=== PATIENT | female | born 1930 | race Caucasian/White ===

== ENCOUNTER 2019-06-26 08:58 | Inpatient (IN) | payer MEDICARE ==
[2019-06-26] VITALS (7 sets, daily range): BP systolic 136–182; BP diastolic 54–82
[~2019-06-26] VITALS: Ht 152.4 cm; Wt 67.1 kg
[~2019-06-26 08:58] MED LIST: CIPROFLOXACIN500 MG PO
[2019-06-26 09:34] LABS: BASO % 0.5 % (0.0-1.0); EOS # 0.1 10*3/uL (0.0-0.4); EOS % 1.9 % (1.0-4.0); HEMATOCRIT 42.9 % (37.0-47.0); HEMOGLOBIN 13.6 g/dl (12.0-16.0); LYMPH # 1.5 10*3/uL (1.3-4.4); LYMPH % 24.6 % (27.0-41.0); MEAN CELL VOLUME 95.3 fl (81.0-99.0); MEAN CORPUSCULAR HGB 30.2 pg (27.0-31.0); MEAN CORPUSCULAR HGB CONC 31.7 g/dl (33.0-37.0); MEAN PLATELET VOLUME 10.2 fl (9.6-12.3); MONO # 0.5 10*3/uL (0.1-1.0); MONO % 7.2 % (3.0-9.0); NEUT # 4.1 10*3/uL (2.3-7.9); NEUT % 65.3 % (47.0-73.0); PLATELET COUNT AUTOMATED 185 10*3/uL (130-400); WHITE BLOOD COUNT 6.3 10*3/uL (4.8-10.8)
[2019-06-26 09:55] LABS: ALBUMIN 3.2 gm/dl (3.1-4.5); ALKALINE PHOSPHATASE 73 U/L (45-117); BUN 6 mg/dl (7-24); CHLORIDE 110 mmol/L (98-107); CREATININE 0.86 mg/dL (0.55-1.02); SGOT/AST 16 IU/L (3-35); SGPT/ALT 15 U/L (12-78); SODIUM 143 mmol/L (136-145); TOTAL PROTEIN 6.4 gm/dL (6.4-8.2)
[2019-06-26 10:10] LABS: TROPONIN I < 0.015 ng/ml (<0.045)
[2019-06-26 10:12] LABS: BILIRUBIN NEGATIVE (NEGATIVE); BLOOD TRACE-INTACT (NEGATIVE); CLARITY CLEAR (CLEAR); COLOR YELLOW (YELLOW); GLUCOSE NEGATIVE (NEGATIVE); KETONE NEGATIVE (NEGATIVE); LEUKO ESTERASE 2+ (NEGATIVE); NITRITE NEGATIVE (NEGATIVE); UROBILINOGEN 0.2 E.U./dl (0.2-1.0)
[2019-06-26 10:35] LABS: BACTERIA 1+
--- NOTE | 2019-06-26 14:45 | NUR ---
Time: 1444 A 89 year old F admitted to under services of SRINIVAS ELIZABETH DO Pt. arrived via wheel chair from ER. Chief complaint: ALTERED MENTAL STATUS. JOSÉ MERCHANT
--- NOTE | 2019-06-26 15:09 | NUR ---
SPOKE WITH SONNY AT [facility], AWARE OF DR SELWYN APARICIO.
[2019-06-27] VITALS: BP 117/48
[2019-06-27 06:45] LABS: BASO % 0.3 % (0.0-1.0); EOS # 0.1 10*3/uL (0.0-0.4); EOS % 2.1 % (1.0-4.0); HEMATOCRIT 38.9 % (37.0-47.0); HEMOGLOBIN 12.5 g/dl (12.0-16.0); LYMPH # 1.4 10*3/uL (1.3-4.4); LYMPH % 22.1 % (27.0-41.0); MEAN CELL VOLUME 94.9 fl (81.0-99.0); MEAN CORPUSCULAR HGB 30.5 pg (27.0-31.0); MEAN CORPUSCULAR HGB CONC 32.1 g/dl (33.0-37.0); MEAN PLATELET VOLUME 10.9 fl (9.6-12.3); MONO # 0.5 10*3/uL (0.1-1.0); MONO % 7.1 % (3.0-9.0); NEUT # 4.3 10*3/uL (2.3-7.9); NEUT % 67.8 % (47.0-73.0); PLATELET COUNT AUTOMATED 188 10*3/uL (130-400); RED CELL DISTRI WIDTH 12.9 % (0-14.5); WHITE BLOOD COUNT 6.3 10*3/uL (4.8-10.8)
[2019-06-27 07:10] LABS: BUN 12 mg/dl (7-24); CHLORIDE 107 mmol/L (98-107); CHOLESTEROL 190 mg/dL (<200); FREE T4 0.82 ng/dl (0.76-1.46); HDL CHOLESTEROL 56 mg/dl (40-60); LDL CHOLESTEROL 115 mg/dL (9-159); PHOSPHOROUS 3.2 mg/dL (2.5-4.9); SODIUM 140 mmol/L (136-145); TRIGLYCERIDES 95 mg/dl (<150); VLDL CHOLESTEROL 19 mg/dL (6-40)
[2019-06-27 08:00] VITALS: BP 148/75
[2019-06-27 08:09] LABS: VITAMIN D, 25-HYDROXY 18.4 ng/mL (30-100)
--- NOTE | 2019-06-27 09:00 | NUR ---
case management visits with patient, son present, son stated patient lives at home alone, but he, his and daughter take turns throughout the day to stay with patient, patient is pleasanlty confused at this time, son stated his mom has gotten progressively worse, more confused over that last few weeks, discussed with him a discharge plan, he stated he would like his mom referred to [facility] for short term penitentiary and will talk with the family and decide for longterm care for patient, son stated he has paperwork at home but is unsure if it is a poa for healthcare or financial, he will bring the paperwork in to nursing staff. network planner will refer patient to [facility], case management will follow
--- NOTE | 2019-06-27 10:03 | NUR ---
Patient/family requesting referral to [facility] for skilled stay. Contacted [facility] and faxed referral. Since patient resides in [place] and has a [place] [employer] insurance, her referral was also faxed to [facility] to check benefits as patient may be required to stay in the state of which she resides. will follow.
--- NOTE | 2019-06-27 10:10 | NUR ---
Occupational Therapy evaluation completed this date on 4 with full eval to follow. Precautions include fall risk; bed/chair alarm,impaired cognition;poor memory,orientation,insight,judgement, moderate complexity level 73905 via chart reveiew, testing and evaluation. Recomemnd OT per POC and SNF to enable max ability to function. Thank you. Patient left in bed w/ bed alarm intact. Nurse given infor regarding patient's request for lunch. Natalee Harden OTR/l
[2019-06-27 12:00] VITALS: BP 151/66
--- NOTE | 2019-06-27 12:13 | NUR ---
DR HOOK IN TO SPEAK WITH PT.
--- NOTE | 2019-06-27 14:04 | NUR ---
PHYSICAL THERAPY Physical therapy evaluation completed, 4E. Full details/evaluation to follow. Moderate complexity determined after evaluation/chart review, [address]. PT to work on strength, gait, safety, transfers and balance. Recommending SNF at discharge due to severe Dementia. Thank you Megha Frazier, PT, DPT
[2019-06-27 16:00] VITALS: BP 137/83
--- NOTE | 2019-06-27 17:16 | NUR ---
PT KEEP TRYING TO STAND AND WALK AROUND ROOM/HALLS. ELOPEMENT RISK. WHEN BODY ALARM SOUNDS SHE GETS VERY UPSET. DR DOMINGUEZ NOTIFIED.
[2019-06-27 20:00] VITALS: BP 169/56
[2019-06-28] VITALS: BP 142/57
[2019-06-28 06:42] LABS: BASO % 0.3 % (0.0-1.0); BUN 9 mg/dl (7-24); CHLORIDE 106 mmol/L (98-107); CREATININE 0.81 mg/dL (0.55-1.02); EOS # 0.1 10*3/uL (0.0-0.4); EOS % 1.6 % (1.0-4.0); HEMATOCRIT 39.1 % (37.0-47.0); HEMOGLOBIN 12.6 g/dl (12.0-16.0); LYMPH # 1.1 10*3/uL (1.3-4.4); LYMPH % 18.4 % (27.0-41.0); MEAN CELL VOLUME 94.9 fl (81.0-99.0); MEAN CORPUSCULAR HGB 30.6 pg (27.0-31.0); MEAN CORPUSCULAR HGB CONC 32.2 g/dl (33.0-37.0); MEAN PLATELET VOLUME 10.8 fl (9.6-12.3); MONO # 0.5 10*3/uL (0.1-1.0); MONO % 7.6 % (3.0-9.0); NEUT # 4.4 10*3/uL (2.3-7.9); NEUT % 71.5 % (47.0-73.0); PLATELET COUNT AUTOMATED 175 10*3/uL (130-400); POTASSIUM 3.9 mmol/L (3.5-5.1); RED BLOOD COUNT 4.12 10*6/uL (4.10-5.10); RED CELL DISTRI WIDTH 12.9 % (0-14.5); SODIUM 140 mmol/L (136-145); WHITE BLOOD COUNT 6.2 10*3/uL (4.8-10.8)
--- NOTE | 2019-06-28 07:24 | NUR ---
Notified patient does not have [employer] Medicare, she has traditional medicare; however [facility] still feels patient should stay in the state of [place] and apply for [place] medicaid; she would be a payment issue for their facility so they are unable to meet her needs at this time. Patient referred to [facility] for review. Waiting on review/acceptance.
--- NOTE | 2019-06-28 07:40 | NUR ---
[facility] stating patient may be too confused for their facilities at this time, they are also concerned about possibility of patient becoming usp, they do not have any usp beds available at this time.
[2019-06-28 08:00] VITALS: BP 164/76
--- NOTE | 2019-06-28 08:25 | NUR ---
PHYSICAL THERAPY Patient seen this am 1:1 for therapy visit and was sitting up in bedside Teresita chair following breakfast upon therapist arrival. Patient identified by name / and was joined by patient attendant who was 1:1 Supervision secondary to severe Dementia / increased risk of falling. Patient was pleasant this morning transfering sit to stand MIN A, requiring v/c to collect herself due to impulsive behaviour. Patient ambulates REGISTRAR ASSISTANT/CGA, 40'x 2, demonstrating steady wayne, however very unsteady during all turns and during backward walk 5'x 2. Patient returned to Teresita chair with lap tray and body alarm under patient attendant 1:1 Supervision as her Son Ollie arrived to visit. Patient tolerated all treatment with no new c/o's and will continue per POC as tolerated, total treatment time 17 minutes. Aryan Leo, DE IONIZER OPERATOR
--- NOTE | 2019-06-28 08:40 | NUR ---
OT NOTE Pt was seen this A.M. 1:1 for 20 minute OT session. Upon arrival pt was sitting upright in the rg chair. Pt identified by name and and had no complaints at this time. Pt completed sit to stand transfer from chair level with Shelby followed by functional mobility into the bathroom with Shelby ASKEW. There she transferred on/off standard commode with Shelby due to low surface and max verbal prompts provided due to thinking the garbage can was the commode. Clothing management completed with CGA and toilet hygiene completed with Shelby for assist with sequencing. Throughout task pt thought that the depends in the trash can were the ones she was to be wearing, attempting to get them out of the trash required max verbal and tactile prompts to redirect. Pt then stood sink side while washing her hands and face with CGA for safety. Pt did have one LOB while making a tight turn in the bathroom that required Shelby to correct. Pt was left sitting upright in the rg chair with lap tray in place, body alarm activated for safety, and 1:1 in the room. Continue with rec D/C plan to SNF. SNOW Hinton/Pedro
--- NOTE | 2019-06-28 09:00 | NUR ---
conference planner is working with patient's son regarding discharge arrangements
[2019-06-28 12:00] VITALS: BP 124/51
--- NOTE | 2019-06-28 12:17 | NUR ---
Contacted [facility] in [facility]. Discussed this case with them and the fact that son would like senior procurement specialist care and needs assistance with applying for medicaid. Facility was very responsive and asked to send referral. [facility] is reviewing. son was notified.
--- NOTE | 2019-06-28 15:16 | NUR ---
Spoke with patient [id number] Serenity. Discussed the plan of discharge to [facility] for residential care. Explained the [place]icaid. She understood and is agreeable to referral to [facility].
--- NOTE | 2019-06-28 15:45 | NUR ---
Pt sitting up in chair with 1:1 sitter. Pt is tearful, states she didn't want to be bad. KAT Dueñas states that pt attempted to kick her when doing routine vitals recently. Reassured pt. Lungs dimished and clear throughout. Denies sob. No cough noted. No edema noted. Denies pain. Murmur noted. Will continue to monitor.
[2019-06-28 16:00] VITALS: BP 129/81; BP 130/80
[2019-06-28 20:00] VITALS: BP 132/66
[2019-06-29] VITALS: BP 92/52
--- NOTE | 2019-06-29 00:05 | NUR ---
patient resting in rg chair in view of 1:1 sitter, patient is sleeping, respirations easy and regular on room air. no overt distress.
[2019-06-29 06:33] LABS: BASO % 0.5 % (0.0-1.0); EOS # 0.1 10*3/uL (0.0-0.4); EOS % 1.4 % (1.0-4.0); HEMATOCRIT 38.2 % (37.0-47.0); HEMOGLOBIN 12.3 g/dl (12.0-16.0); LYMPH # 1.2 10*3/uL (1.3-4.4); LYMPH % 18.5 % (27.0-41.0); MEAN CORPUSCULAR HGB 30.9 pg (27.0-31.0); MEAN CORPUSCULAR HGB CONC 32.2 g/dl (33.0-37.0); MEAN PLATELET VOLUME 10.8 fl (9.6-12.3); MONO # 0.5 10*3/uL (0.1-1.0); NEUT # 4.7 10*3/uL (2.3-7.9); NEUT % 72.1 % (47.0-73.0); PLATELET COUNT AUTOMATED 192 10*3/uL (130-400); RED BLOOD COUNT 3.98 10*6/uL (4.10-5.10); WHITE BLOOD COUNT 6.6 10*3/uL (4.8-10.8)
[2019-06-29 06:37] LABS: CREATININE 1.27 mg/dL (0.55-1.02); POTASSIUM 4.6 mmol/L (3.5-5.1)
[2019-06-29 08:00] VITALS: BP 96/62
--- NOTE | 2019-06-29 08:21 | NUR ---
patient updated clinincals and therapy notes faxed to [facility] for review. Still waiting on review/acceptance.
--- NOTE | 2019-06-29 08:30 | NUR ---
SON IN ROOM WITH PT. PT SLEEPING IN BED. RESP-EASY AND REGULAR. SON WANTS PATIENT TO SLEEP DON'T WANT HER WOKE UP AT THIS TIME. BED ALARM ON. STUDENT NURSE WITH PT ALSO. WILL CON'T TO MONITOR.
--- NOTE | 2019-06-29 08:35 | NUR ---
PATIENT AROUSED DURING ASSESSMENT, NOW RESTING COMFORTABLY. JOHN CERVANTES LOKI
--- NOTE | 2019-06-29 08:45 | NUR ---
PHYSICAL THERAPY Patient was sound asleep this am when approached for therapy visit and per family request asked to let patient rest this am secondary to not sleeping much last nigh. Patient remained in bed with 1:1 staff Supervision and will continue per POC as able. Aryan Leo, MOWER SHARPENER
--- NOTE | 2019-06-29 08:47 | NUR ---
DR. DOMINGUEZ ON FLOOR D/C'D 1:1.
--- NOTE | 2019-06-29 09:00 | NUR ---
case management visits with patient, cyber policy and strategy planner is working with [facility] for skilled placement, case management will follow
[2019-06-29 10:32] VITALS: BP 104/62
--- NOTE | 2019-06-29 11:03 | NUR ---
OT NOTE PATIENT SLEEPING THIS AM AND FAMILY REQUESTING THAT THE PATIENT REST. WILL TRY BACK LATER TIME/DATE. MONY ADAMSON/Pedro
--- NOTE | 2019-06-29 11:03 | NUR ---
RESTING COMFORTABLY IN BED, NO HALLUCINATIONS NOTED AT THIS TIME. JOHN [facility]ERVANTES [facility]
--- NOTE | 2019-06-29 11:16 | NUR ---
Spoke with admissions from [facility]. they stated the referral is looking good but needs to clear through administration first. She also stated I must complete the [place] form she is faxing to the hospital.
--- NOTE | 2019-06-29 11:40 | NUR ---
PT AWAKE RESTING INB ED. RESP-EASY AND REGULAR. ORDERED BREAKFAST FOR PT. NO C/O AT THIS TIME. CALL LIGHT IN REACH. BED ALARM ON.
[2019-06-29 12:00] VITALS: BP 108/68
--- NOTE | 2019-06-29 12:36 | NUR ---
Patient accepted to [facility] completed, waiting for clearance.
--- NOTE | 2019-06-29 12:45 | NUR ---
NO S/S OF DISTRESS, PLEASANT AND COOPERATIVE, TALKING QUIETLY TO SELF. JOHN CERVANTES [facility]
--- NOTE | 2019-06-29 13:00 | NUR ---
PHYSICAL THERAPY Patient seen this pm 1:1 for therapy visit and was supine in bed following lunch upon therapist arrival. Patient identified by name / and reported no c/o's of pain at this time. Patient was alert and fairly pleasant, needing several v/c's to focus on therapy task this session. Patient transfered supine to sit EOB with MIN A and sit to stand CGA. Patient amubulates with use of wh walker, 40'x 2, CGA, demonstrating impulsive behaviour secondary to increased gait velocity and POOR walker safety during turns. Patient returned to [facility] chair near hallway door and remained with lap tray and body alarm in view of nursing station for safety. Will continue per POC as tolerated, total treatment time 17 minutes. Aryan Leo, AUTO BODY CUSTOMIZER
--- NOTE | 2019-06-29 13:09 | NUR ---
OT NOTE PATIENT SEEN OT THIS DATE 19 MINUTES. PATIENT IDNETIFIED BY NAME AND DATE OF ON WRIST BAND. PATIENT IN BED UPON ARRIVAL. PATIENT COMPLETED SUPINE TO SIT MIN A. COMPLETED SIT TO STAND FROM BED MIN A AND AMBULATED USE FWW TO BATHROOM MIN A FWW MANAGEMENT AND SIMPLE ONE STEP COMMNANDS AND VERBAL REDIRECTION TO MAINTAIN ATTENTION TO TASK. COMPLETED TOILET TRANSFER MIN A WITH MOD VERBAL CUES SAFETY .PATIENT DEMONSTRATED POOR SAFETY AWARENESS OVERALL THIS DATE. COMPLETED TOILETING TASK MOD A AND COMPLETED HAND WASHING STANDING AT SINK MIN A. PATIENT SEATED IN RECLINER WITH TRAY AND BODY ALARM INTACT END OF SESSION THIS DATE. CONTINUE TOWARDS PLAN OF CARE. MONY ADAMSON/Pedro
--- NOTE | 2019-06-29 15:20 | NUR ---
PHYSICAL THERAPY CO-SIGN I approve of the Physical Therapy notes written above. Tatianna Brown PT
--- NOTE | 2019-06-29 15:20 | NUR ---
OCCUPATIONAL THERAPY CO-SIGN I approve of the Occupational Therapy notes written above. VASU GÓMEZ OTR/Pedro
[2019-06-29] MEDS ORDERED: VITAMIN D32000 UNI1 PO (15:36)
[2019-06-29] MEDS ORDERED: LISINOPRIL10 M1 PO (15:36)
[2019-06-29] MEDS ORDERED: MIRTAZAPINE15 M2 PO (15:36)
[2019-06-29] MEDS ORDERED: VITAMIN B-12100 MCG PO (15:36)
[2019-06-29] MEDS ORDERED: RIVASTIGMINE1 EACH T (15:36)
--- NOTE | 2019-06-29 15:43 | NUR ---
[facility] [place] [facility], patient has been accepted, 3 night stay complete. Patient ok to go to [facility] if medically stable for discharge; Daughter in law will transport,.
[2019-06-29 16:00] VITALS: BP 116/47
--- NOTE | 2019-06-29 16:00 | NUR ---
PT SLEEPING IN RECLINER CHAIR NEAR THE DESK. RESP-EASY AND REGULAR. CALL LIGHT IN REACH. AWAKENS EASILY. BODY ALARM ON PT.
--- NOTE | 2019-06-29 16:05 | NUR ---
CALLED [facility] GAVE REPORT TO BRIAN. WAITING FOR SON TO PICK HER UP.
--- NOTE | 2019-06-29 17:45 | NUR ---
Discharge instructions reviewed with patient/family. Patient receptive and verbalizes understanding. Follow-up care arranged. Written instructions given to patient/family. PT ESCORTED VIA WHEELCHAIR WITH SON AT HER SIDE. HE IS TRANSPORTING HER TO [place]. PAPERS GIVEN TO FAMILY. AMADO LINDSAY
--- NOTE | 2019-07-02 07:49 | NUR ---
PHYSICAL THERAPY CO-SIGN I approve of the Physical Therapy notes written above. Tatianna Brown PT
== END 2019-06-29 17:45 | disposition other institution (70) | DRG 689 ==
LOC: ED 08:58 → EDHOLD 10:46 → 4E 10:46
PROVIDERS: Internal Medicine; Physician Assistant; ADMIT Internal Medicine
DX: N30.01 Acute cystitis with hematuria (principal); G93.41 Metabolic encephalopathy; E44.0 Moderate protein-calorie malnutrition; F03.91 Unspecified dementia, unspecified severity, with behavioral disturbance; J98.11 Atelectasis; I16.0 Hypertensive urgency; G47.00 Insomnia, unspecified; R41.9 Unspecified symptoms and signs involving cognitive functions and awareness; R62.7 Adult failure to thrive; E66.9 Obesity, unspecified; E55.9 Vitamin D deficiency, unspecified; Z91.040 Latex allergy status; Z68.28 Body mass index [BMI] 28.0-28.9, adult